=== PATIENT | female | born 1985 | race African-American/Black ===

== ENCOUNTER 2016-06-28 15:20 | Emergency (ER) | payer SELFPAY ==
[~2016-06-28] VITALS: Ht 170.2 cm; Wt 68.0 kg
[2016-06-28] MEDS ORDERED: LORAZEPAM INJ 2 MG/ML VIAL IV ONE ×2 (16:00→18:30)
[2016-06-28] MEDS ORDERED: IV NS 0.9% 1,000 ML BAG IV ONE (16:00)
[2016-06-28] MEDS ORDERED: IV NS 0.9% 1,000 ML ONE (16:08)
[2016-06-28] MEDS ORDERED: LORAZEPAM INJ 2 MG/ML VIAL ONE ×2 (16:08→18:06)
[2016-06-28] MEDS ORDERED: IV SET PRIMARY 1 EA INFUS.SET MC ONE (16:08)
[2016-06-28 16:18] LABS: BASOPHILS % (AUTO) 0.3 % (0.0-2.0); HEMATOCRIT 49 % (33-45); HEMOGLOBIN 16.6 g/dL (11.5-14.8); LYMPHOCYTES # (AUTO) 0.3 /CMM (0.8-4.8); LYMPHOCYTES % (AUTO) 2.7 % (20.0-44.0); MEAN CORPUSCULAR HEMOGLOBIN 37 PG (26.0-33.0); MEAN CORPUSCULAR HGB CONC 34 g/dl (31.0-36.0); MEAN CORPUSCULAR VOLUME 108 fL (82-100); MONOCYTES # (AUTO) 0.4 /CMM (0.1-1.30); MONOCYTES % (AUTO) 2.9 % (2.0-12.0); NEUTROPHILS # (AUTO) 11.6 /CMM (1.8-8.9); NEUTROPHILS % (AUTO) 94.1 % (43.0-81.0); PLATELET COUNT (AUTO) 218 /CMM (150-450); RED BLOOD CELL COUNT(AUTO) 4.53 MIL/uL (4.0-5.2); WHITE BLOOD COUNT (AUTO) 12.3 K/uL (4.3-11.0)
[2016-06-28 16:27] LABS: ANION GAP 25 (5-14); CALCIUM, SERUM 10.7 mg/dL (8.5-10.1); CARBON DIOXIDE 24 mmol/L (21-32); CHLORIDE 97 mmol/L (98-107); CREATININE 1.5 mg/dL (0.6-1.3); GFR 41 mL/min (>60); GLUCOSE 186 mg/dL (74-106); POTASSIUM 3.8 mmol/L (3.5-5.1); SODIUM SERUM 142 mmol/L (136-145); UREA NITROGEN, BLOOD 9 mg/dL (7-18)
[2016-06-28 16:33] LABS: ALANINE AMINOTRANSFERASE 82 U/L (12-78); ASPARTATE AMINOTRANSFERASE 74 U/L (15-37); BILIRUBIN,DIRECT 0.4 mg/dL (0.0-0.2); BILIRUBIN,TOTAL 1.3 mg/dL (0.2-1.0); INDIRECT BILIRUBIN 0.9 mg/dL (0.0-1.1); TOTAL PROTEIN, SERUM 9.6 g/dL (6.4-8.2)
[2016-06-28 16:45] LABS: ACETAMINOPHEN 0 ug/ml (10-30); SALICYLATE 0.7 mg/dL (2.8-20.0)
[2016-06-28 16:49] LABS: PREGNANCY TEST URINE QUAL NEGATIVE (NEGATIVE)
[2016-06-28 17:00] LABS: PH,URINE 6.5 (5.0-8.0)
[2016-06-28] MEDS ORDERED: CHLORDIAZEPOXIDE HCL 25 MG CAPSULE PO ONE (17:00)
[2016-06-28 17:02] LABS: ADD UA MICROSCOPIC YES; LEUKOCYTE ESTERASE ,URINE NEGATIVE (NEGATIVE)
[2016-06-28 17:06] LABS: KETONES,URINE 3+ (NEGATIVE)
[2016-06-28] MEDS ORDERED: CHLORDIAZEPOXIDE HCL 25 MG CAPSULE ONE (17:13)
[2016-06-28] MEDS ORDERED: ONDANSETRON HCL/PF 4 MG/2 ML VIAL ONE ×2 (17:16→18:05)
[2016-06-28 17:28] LABS: DIFF TOTAL % 100 %
[2016-06-28] MEDS ORDERED: ONDANSETRON HCL/PF - ER 4 MG/2 ML VIAL IV ONE ×2 (17:30→18:30)
[2016-06-28 17:58] LABS: ADD URINE CULTURE YES; WBC,URINE 0-2 /HPF (0-3)
[2016-06-28 19:03] VITALS: BP 140/75
[2016-06-28 19:39] LABS: BAND % (MANUAL) 1 % (0.0-5.0); LYMPHOCYTES % (MANUAL) 5 % (16-48)
[2016-06-28 19:40] LABS: PLATELET ESTIMATE ADEQUATE
[2016-06-28 19:41] LABS: ANISOCYTOSIS 2+
== END 2016-06-28 19:04 | disposition home or self-care (01) ==
LOC: ER 15:26
DX: N39.0 Urinary tract infection, site not specified (principal); F10.239 Alcohol dependence with withdrawal, unspecified; N28.9 Disorder of kidney and ureter, unspecified; R74.0 Nonspecific elevation of levels of transaminase and lactic acid dehydrogenase [LDH]
CPT/HCPCS: 36415; 80048-TC; 80076-TC; 81000-TC; 83690-TC; 84703-TC; 85025-TC; 87086-TC; A4606; G6038-TC; G6039-TC; G6040-TC; J2060; J2405; J7030; Z7610

== ENCOUNTER 2020-04-23 19:20 | Inpatient (IN) | payer MEDICAID, OTHER ==
[~2020-04-23] VITALS: Ht 170.2 cm; Wt 68.0 kg
--- NOTE | 2020-04-23 19:42 | NUR ---
LOLI AT BEDSIDE SPEAKING TO PT.
--- NOTE | 2020-04-23 19:57 | NUR ---
CAVITY PUMP OPERATOR AT BEDSIDE FOR BLOOD DRAW.
[2020-04-23 20:00] LABS: BASOPHILS # (AUTO) 0.1 /CMM (0.0-0.2); BASOPHILS % (AUTO) 0.7 % (0.0-2.0); EOSINOPHILS % (AUTO) 0.3 % (0.0-6.0); HEMATOCRIT 46 % (33-45); HEMOGLOBIN 15.6 g/dL (11.5-14.8); LYMPHOCYTES # (AUTO) 2.7 /CMM (0.8-4.8); LYMPHOCYTES % (AUTO) 26.3 % (20.0-44.0); MEAN CORPUSCULAR HGB CONC 34 g/dl (31.0-36.0); MEAN CORPUSCULAR VOLUME 109 fL (82-100); MONOCYTES # (AUTO) 0.4 /CMM (0.1-1.30); MONOCYTES % (AUTO) 4.1 % (2.0-12.0); NEUTROPHILS # (AUTO) 7.1 /CMM (1.8-8.9); NEUTROPHILS % (AUTO) 68.6 % (43.0-81.0); PLATELET COUNT (AUTO) 230 /CMM (150-450); RED BLOOD CELL COUNT(AUTO) 4.26 MIL/uL (4.0-5.2); WHITE BLOOD COUNT (AUTO) 10.3 K/uL (4.3-11.0)
[2020-04-23] MEDS ORDERED: IV NS 0.9% 1,000 ML BAG IV ONE ×2 (20:00→22:00)
[2020-04-23 20:08] LABS: CALCIUM, SERUM 9.4 mg/dL (8.5-10.1); POTASSIUM 2.9 mmol/L (3.5-5.1)
[2020-04-23 20:11] LABS: LYMPHOCYTES % (MANUAL) 24 % (16-48); MONOCYTES % (MANUAL) 4 % (0-11.0); NEUTROPHILS % (MANUAL) 72 (42-76)
[2020-04-23 20:13] LABS: ALBUMIN 4.7 g/dL (3.4-5.0); BILIRUBIN,DIRECT 0.2 mg/dL (0.0-0.2); BILIRUBIN,TOTAL 0.4 mg/dL (0.2-1.0); TOTAL PROTEIN, SERUM 8.7 g/dL (6.4-8.2)
--- NOTE | 2020-04-23 20:20 | NUR ---
SPOKE WITH TYLER FROM POISON CONTROL. RECOMMENDATIONS: MONITOR FOR A MINIMUM OF 12 HOURS IF NARCAN IS NEEDED, MONITOR FOR AN ADDITIONAL 6 HOURS MONITOR VITAL SIGNS AND AIRWAY MANAGEMENT REPEAT TYLENOL LEVEL AFTER 4 HOURS FROM TIME OF INGESTION. IF >150, START MUCOMYST JOSE SNOWDEN MADE AWARE
[2020-04-23] MEDS ORDERED: ONDANSETRON HCL/PF 4 MG/2 ML VIAL ONE (20:28)
[2020-04-23] MEDS ORDERED: ONDANSETRON HCL/PF 4 MG/2 ML VIAL IV ONE (20:30)
--- NOTE | 2020-04-23 20:35 | NUR ---
ASSUMED CARE FOR THIS PT
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
[2020-04-23] MEDS ORDERED: POTASSIUM CHLORIDE 20 MEQ TAB.PRT.SR PO ONE (21:00)
[2020-04-23 22:06] LABS: BILIRUBIN,URINE Negative (NEGATIVE); BLOOD, URINE Trace-lysed Ery/uL (NEGATIVE); COLOR,URINE YELLOW (YELLOW); LEUKOCYTE ESTERASE ,URINE Negative (NEGATIVE); NITRITE, URINE Negative (NEGATIVE); PH,URINE 5.5 (5.0-8.0); PROTEIN,URINE 100 mg/dl (NEGATIVE); UGLUCOSE Negative (NEGATIVE); UROBILINOGEN,URINE 0.2 EU/dL (0.2)
--- NOTE | 2020-04-23 22:09 | NUR ---
URINE COLLECTED AND SENT TO LAB
[2020-04-23 22:21] LABS: BACTERIA,URINE Rare /HPF (None Seen); SQUAMOUS EPITHELIAL CELL,UR Few /HPF (None Seen); WBC,URINE NONE SEEN /HPF (0-3)
[2020-04-23] MEDS ORDERED: MAG HYDROX/AL HYDROX/SIMETH 30 ML UDC PO PRN (22:30)
[2020-04-23] MEDS ORDERED: ZOLPIDEM TARTRATE 5 MG TABLET PO PRN (22:30)
[2020-04-23] MEDS ORDERED: IV D5/0.45 NACL 1,000 ML IV PRN (22:30)
[2020-04-23] MEDS ORDERED: MAGNESIUM HYDROXIDE 30 ML UDC PO PRN (22:30)
[2020-04-23] MEDS ORDERED: Z GUARD REMEDY 2 OZ OINT TP PRN (22:30)
--- NOTE | 2020-04-23 22:30 | NUR ---
JOSE SNOWDEN SPEAKING WITH DR. BURKS REGARDING ADMISSION
--- NOTE | 2020-04-23 22:36 | NUR ---
CALLED NURSING SUP FOR BED
--- NOTE | 2020-04-23 23:51 | NUR ---
GAVE UPDATE CLINICAL INFORMATION TO TYLER FROM POISON CONTROL. RECOMMENDED TO REPEAT TYLENOL LEVEL AND LFT IN 4 HOURS. JOSE SNOWDEN MADE AWARE
--- NOTE | 2020-04-23 23:51 | NUR ---
Paola madden in EDM - 04/24/20 at 0557 by CESAR GAVE UPDATE CLINICAL INFORMATION TO TYLER FROM POISON CONTROL. RECOMMENDED TO REPEAT TYLENOL LEVEL AND LFT IN 4 HOURS
[2020-04-24] MEDS ORDERED: METOCLOPRAMIDE HCL 10 MG/2 ML VIAL IV ONE (01:30)
--- NOTE | 2020-04-24 01:30 | NUR ---
PT HAD ONE EPISODE EMESIS. DR. BURKS MADE AWARE. REC'D VERBAL ORDER TO ADMINISTER REGLAN 10MG IV X1 NOW
[2020-04-24] MEDS ORDERED: METOCLOPRAMIDE HCL 10 MG/2 ML VIAL ONE (01:32)
--- NOTE | 2020-04-24 01:57 | NUR ---
PT'S GRANDPA (ALONZO
--- NOTE | 2020-04-24 02:04 | NUR ---
PT AWAKE IN BED. VSS. NO EPISODES OF VOMITING AT THIS TIME.
--- NOTE | 2020-04-24 05:15 | NUR ---
PT RESTING COMFORTABLY IN BED. VSS.NO ACUTE DISTRESS NOTED.
[2020-04-24 05:17] LABS: BASOPHILS # (AUTO) 0.1 /CMM (0.0-0.2); HEMATOCRIT 42 % (33-45); HEMOGLOBIN 13.9 g/dL (11.5-14.8); LYMPHOCYTES # (AUTO) 0.3 /CMM (0.8-4.8); LYMPHOCYTES % (AUTO) 2.9 % (20.0-44.0); MEAN CORPUSCULAR HGB CONC 33 g/dl (31.0-36.0); MEAN CORPUSCULAR VOLUME 111 fL (82-100); MONOCYTES # (AUTO) 0.4 /CMM (0.1-1.30); MONOCYTES % (AUTO) 3.9 % (2.0-12.0); NEUTROPHILS # (AUTO) 9.9 /CMM (1.8-8.9); NEUTROPHILS % (AUTO) 92.2 % (43.0-81.0); PLATELET COUNT (AUTO) 175 /CMM (150-450); RED BLOOD CELL COUNT(AUTO) 3.75 MIL/uL (4.0-5.2); WHITE BLOOD COUNT (AUTO) 10.7 K/uL (4.3-11.0)
[2020-04-24 05:43] LABS: CALCIUM, SERUM 8.9 mg/dL (8.5-10.1); CREATININE 0.9 mg/dL (0.6-1.3); MAGNESIUM 1.4 mg/dL (1.8-2.4); PHOSPHORUS 3.4 mg/dL (2.5-4.9); POTASSIUM 4.5 mmol/L (3.5-5.1); THYROID STIMULATING HORMONE 2.868 uIU/mL (0.358-3.74)
--- NOTE | 2020-04-24 05:44 | NUR ---
PT HAD AN EPISODE OF COFFEE GROUND EMESIS. DR BURKS MADE AWARE
[2020-04-24 05:45] LABS: ALBUMIN 4.2 g/dL (3.4-5.0); BILIRUBIN,DIRECT 0.2 mg/dL (0.0-0.2); BILIRUBIN,TOTAL 0.4 mg/dL (0.2-1.0)
--- NOTE | 2020-04-24 05:54 | NUR ---
SPOKE WITH POISON CONTROL, RECOMMENDED TO START MUCOMYST SINCE TYLENOL LEVEL IS >44. DR. BURKS MADE AWARE
--- NOTE | 2020-04-24 06:11 | NUR ---
REC'D ORDERS FROM DR. BURKS. MUCOMYST 150MG/KG IV X1 THEN REPEAT ACETAMINOPHEN LEVELS. PT IS 71.5 KG ON BED SCALE
--- NOTE | 2020-04-24 06:11 | NUR ---
Paola madden in EDM - 04/24/20 at 0635 by CESAR REC'Joseph ORDERS FROM DR. BURKS. MUCOMYST 150MG/KG IV X1 THEN REPEAT ACETAMINOPHEN LEVELS. PT IS 71.5 KG
--- NOTE | 2020-04-24 06:19 | NUR ---
PATIENT AMBULATED TO THE RESTROOM WITH FEMALE PLC CONTROLS ENGINEER.
[2020-04-24] MEDS ORDERED: ACETYLCYSTEINE IV 6,000 MG/30 ML VIAL IV ONE (06:31)
--- NOTE | 2020-04-24 06:35 | NUR ---
CALLED PHARMACY FOR MUCOMYST MEDICATION.
[2020-04-24] MEDS ORDERED: ACETYLCYSTEINE IV SCH ×2 (07:00→19:00)
[2020-04-24] MEDS ORDERED: D5W IV SCH ×2 (07:00→19:00)
[2020-04-24] MEDS: ACETYLCYSTEINE IV 6,000 MG/30 ML VIAL IV ONE ×2 (07:00→07:15)
--- NOTE | 2020-04-24 07:15 | NUR ---
BED ASSIGNMENT 310-1
--- NOTE | 2020-04-24 07:51 | NUR ---
REPORT GIVEN TO KRYSTYNA ALVARADO FOR RICH.
[2020-04-24] MEDS ORDERED: D5W IV ONE (07:58)
[2020-04-24] MEDS ORDERED: ACETYLCYSTEINE IV ONE (07:58)
--- NOTE | 2020-04-24 08:10 | NUR ---
PATIENT TRANSFERRED TO BED 310-1 VIA ACLS PROTOCOL. PATIENT COMPELTED MUCOMYST IV BAG, ENDORSED TO KRYSTYNA A REPEAT DRAW OF ACETAMINOPHEN AT 8:15AM.
--- NOTE | 2020-04-24 08:10 | NUR ---
SUPERINTENDENT PRODUCTION NOTES RECEIVED PT FROM E.R. STAFF VIA [facility], PT ABLE TO AMBULATE TO BED WITH ASSISTANCE, NO COMPLAINT OF PAIN, RESPIRATIONS NORMAL, WITH EPISODES OF NAUSEA/VOMITING, ROOM SET UP ORIENTATION PROVIDED TO PT, VERBALIZED UNDERSTANDING, SITTER AT BEDSIDE, NEEDS ATTENDED.
[2020-04-24] MEDS: PANTOPRAZOLE 40 MG TABLET.DR PO SCH (09:46)
--- NOTE | 2020-04-24 10:25 | NUR ---
CORE SETTER NOTES PT SEEN AND EXAMINED BY DR. GONZALEZ, PLAN OF CARE DISCUSSED WITH PT, VERBALIZED UNDERSTANDING, SITTER AT BEDSIDE, SAFETY PRECAUTIONS OBSERVED.
[2020-04-24] MEDS: ONDANSETRON HCL/PF 4 MG/2 ML VIAL IV PRN ×2 (10:57→20:29)
[2020-04-24] MEDS: Magnesium 1GM/D5W 100ML PREMIX 100 ML IV SCH ×4 (11:06→16:18)
[2020-04-24 12:00] VITALS: BP 130/88
[2020-04-24 15:49] LABS: ALBUMIN 3.5 g/dL (3.4-5.0); BILIRUBIN,DIRECT 0.8 mg/dL (0.0-0.2); BILIRUBIN,TOTAL 1.6 mg/dL (0.2-1.0); TOTAL PROTEIN, SERUM 6.9 g/dL (6.4-8.2)
[2020-04-24 16:00] VITALS: BP 138/91
--- NOTE | 2020-04-24 16:26 | NUR ---
SS consult request as pt. drug overdose. The pt. is a 34-year old female on the Med/Surge 3 Telemetry floor with history of alcohol abuse was brought in by EMS and presents with [employer] for suspected overdose on OxyContin per MD note. Upon SS consult, the pt. was lying in bed with eyes closed but rousable by verbal cues. The pt. appears tired with red eyes and stated can you come back later everyone keeps coming in and I want to rest. SW spoke to the pt.s nurse who stated that the pt. will not be D/C today. Plan: This SW or other SW to complete assessment on 04/25/2020. SW will be available as needed.
--- NOTE | 2020-04-24 18:01 | NUR ---
RN MS NOTES RECEIVED RECOMMENDATIONS FROM POISON CONTROL TO RESTART PT ON ACETYLCYSTEINE PER PROTOCOL, DR. GONZALEZ INFORMED AND AGREED.
[2020-04-24] MEDS ORDERED: ACETYLCYSTEINE IV 0 MG in IV D5W 500 ML IV SCH (18:30)
[2020-04-24] MEDS ORDERED: ACETYLCYSTEINE IV 0 MG in IV D5W 1,000 ML IV SCH (18:30)
[2020-04-24] MEDS ORDERED: ACETYLCYSTEINE IV 0 MG in IV D5W 200 ML IV SCH (18:30)
--- NOTE | 2020-04-24 19:00 | NUR ---
rn ms opening notes received patient awake in bed verbally responsive, awake alert and oriented x4 respirations even and unlabored with equal rise and fall of chest, denies any pain or discomfort at this time, iv site to left ac #18g intact and patent, no redness, no infiltration present, safety precautions maintained, low bed and locked, oriented to staff and call light and kept within reach, assisted to restroom and back to bed bed alarm in place, all needs attended at this time, will continue to monitor and attend to needs.
--- NOTE | 2020-04-24 19:00 | NUR ---
RN MS NOTES PT IN BED, ASLEEP, EASY TO AROUSE, ALERT AND ORIENTED, STATED THAT SHE IS FEELING BETTER, ABLE TO AMBULATE TO THE BATHROOM WITH ASSISTANCE, IV FLUIDS INFUSING WELL, NO FURTHER EPISODE OF NAUSEA OR VOMITING, CALL LIGHT WITHIN REACH, NOTED TO HAVE SKIN RASHES, PT STATED THAT SHE HAS ECZEMA, PT REFUSED PHOTOS TAKEN, ACETYLCYSTEINE IV ORDERED PER POISON CONTROL RECOMMENDATION, DR. GONZALEZ INFORMED AND AGREED, NEEDS ATTENDED.
--- NOTE | 2020-04-24 19:45 | NUR ---
rn ms notes patient states "my allergies are acting up, can i have something for allergies i take benadryl at home." dr. cherry made aware of current dx and status of patient, new order for benadryl 25mg q6hrs prn po, order read back and carried out.
[2020-04-24 20:00] VITALS: BP 135/92
[2020-04-24] MEDS ORDERED: ACETYLCYSTEINE IV 3,400 MG in IV D5W 500 ML IV SCH (20:00)
--- NOTE | 2020-04-24 20:29 | NUR ---
rn ms notes prn zofran given for nausea will continue to monitor.
[2020-04-24] MEDS: diphenhydrAMINE HCL ELIX 25 MG/10 ML UDC PO PRN (20:40)
--- NOTE | 2020-04-24 20:40 | NUR ---
rn ms notes prn benadryl given as ordered.
--- NOTE | 2020-04-24 22:52 | NUR ---
rn ms notes received call from [facility] poison control states lft and pt/inr lab is to be drawn one hour prior to 3rd bag finishing. if lft is trending up and inr is above two repeat 3rd bag of ivf acetadote iv/ mucomyst iv.
[2020-04-25] MEDS ORDERED: ACETYLCYSTEINE IV 6,800 MG in IV D5W 1,000 ML IV SCH ×2
[2020-04-25 00:41] VITALS: BP 135/92
--- NOTE | 2020-04-25 06:31 | NUR ---
rn ms closing notes patient in bed sleeping easily arousable, verbally responsive, alert and oriented x4 respirations even and unlabored with equal rise and fall of chest, denies any pain or discomfort at this time, zofran was effective , iv site to left wrist #22g intact and patent, no redness, no infiltration present, safety precautions maintained, low bed and locked, call light kept within reach, assisted to restroom and back to bed alarm in place, fluids offered , all needs attended at this time, will continue to monitor and attend to needs and endorse to next shift per [facility] no data on running d5 1/2 ns and acetyclystein/mucomyst together, advises not to be ran together. acetadote iv/ mucomyst iv is currently running on its own as ordered.
--- NOTE | 2020-04-25 07:30 | NUR ---
MS/RN OPENING NOTE Patient resting in bed, A&O x 3. Breathing even and non-labored on RA, no SOB noted. No cardiac distress noted. IV access noted on L wrist #22, patent and intact, and flushing well. Infusing mucomyst 6800 mg @64.59 ml/hr. Sensation from all peripheral extremities intact. Bed locked to its lowest position, side rails x 2 up, call light in hand. Will continue with current medical management.
[2020-04-25 07:54] LABS: CALCIUM, SERUM 8.6 mg/dL (8.5-10.1); CREATININE 0.7 mg/dL (0.6-1.3); MAGNESIUM 2.2 mg/dL (1.8-2.4); POTASSIUM 3.3 mmol/L (3.5-5.1)
[2020-04-25 08:00] VITALS: BP 131/90
--- NOTE | 2020-04-25 08:00 | NUR ---
MS/RN NOTE Patient complaining of migraine on the occipital area, describes quality as sharp, rating it a 5/[address] Quan at bedside, ordered ibuprofen 400 mg PO q6h. Order carried out. Will continue to monitor.
[2020-04-25] MEDS: PANTOPRAZOLE 40 MG TABLET.DR PO SCH (08:05)
[2020-04-25] MEDS: ONDANSETRON HCL/PF 4 MG/2 ML VIAL IV PRN (08:13)
--- NOTE | 2020-04-25 08:13 | NUR ---
MS/RN NOTE Patient reports of having vomited once, clear emesis noted, currently complains of nausea. Administered zofran 4 mg IV. Will continue to monitor closely.
[2020-04-25] MEDS: IBUPROFEN 400 MG TABLET PO PRN ×2 (09:26→15:29)
[2020-04-25] MEDS ORDERED: POTASSIUM CHLORIDE 20 MEQ TAB.PRT.SR PO ONE (09:30)
--- NOTE | 2020-04-25 15:00 | NUR ---
CORRECTION FROM LAST NOTE: If patient's INR (not PT) is above 2, and LFT's are trending up, infuse another bag of Acetadote IV/ Mucomyst IV 6800 mg for 16 hrs.
--- NOTE | 2020-04-25 15:00 | NUR ---
MS/RN NOTE Spoke with Vi from Poison control, states "an hour before you finish your third bag of Acetadote IV/ Mucomyst IV 6800 mg, check PT/INR and LFTs. If patient's PT is above 2, and LFT's are trending up, infuse another bag of Acetadote IV/ Mucomyst IV 6800 mg for 16 hrs." Order carried out, called lab for blood draw since patient's third infusion will finish at 1630. Addendum: 04/25/20 at 1640 by MARINA SILVERIO RN In addition to above, once another bag of Acetadote IV/ Mucomyst IV 6800 mg is infused, make sure to have patient's blood drawn for PT/INR and LFTs an hour before the bag finishes.
[2020-04-25] MEDS: diphenhydrAMINE HCL ELIX 25 MG/10 ML UDC PO PRN (15:18)
--- NOTE | 2020-04-25 15:18 | NUR ---
MS/RN NOTE Benadryl PRN as MD ordered, patient having runny and itchy nose.
[2020-04-25 15:20] LABS: ALBUMIN 3.4 g/dL (3.4-5.0); BILIRUBIN,DIRECT 1.1 mg/dL (0.0-0.2); BILIRUBIN,TOTAL 1.8 mg/dL (0.2-1.0); TOTAL PROTEIN, SERUM 6.8 g/dL (6.4-8.2)
--- NOTE | 2020-04-25 15:30 | NUR ---
MS/RN NOTE Lab collected patient's blood for PT/INR and LFTs. Awaiting for results.
[2020-04-25] MEDS ORDERED: ACETYLCYSTEINE IV 6,800 MG in IV D5W 1,000 ML IV ONE ×3 (15:59→20:00)
[2020-04-25 16:00] VITALS: BP 119/78
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
--- NOTE | 2020-04-25 16:30 | NUR ---
MS/RN NOTE Followed up lab for patient's results for PT/INR and LFTs
[2020-04-25 17:03] LABS: ALBUMIN 3.3 g/dL (3.4-5.0); BILIRUBIN,DIRECT 1.1 mg/dL (0.0-0.2); BILIRUBIN,TOTAL 1.6 mg/dL (0.2-1.0); TOTAL PROTEIN, SERUM 6.7 g/dL (6.4-8.2)
--- NOTE | 2020-04-25 17:30 | NUR ---
MS/RN NOTE Followed up lab for patient's results for liver panel, per lab, they are in the process of gathering results. Awaiting for results.
--- NOTE | 2020-04-25 18:28 | NUR ---
MS/RN OPENING NOTE Patient resting in bed, A&O x 3. All needs met and attended to. No complaints of pain/discomfort at this time. Breathing even and non-labored on RA, no SOB noted. No cardiac distress noted. IV access noted on L wrist #22, patent and intact, and running D5 1/2 NS @ 75 ml/hr. Sensation from all peripheral extremities intact. Fall precautions maintained. Will endorse to night manager nurse. Addendum: 04/25/20 at 1830 by MARINA SILVERIO RN DISREGARD NOTE
--- NOTE | 2020-04-25 18:29 | NUR ---
MS/RN CLOSING NOTE Patient resting in bed, A&O x 3. All needs met and attended to. No complaints of pain/discomfort at this time. Breathing even and non-labored on RA, no SOB noted. No cardiac distress noted. IV access noted on L wrist #22, patent and intact, and running D5 1/2 NS @ 75 ml/hr. Sensation from all peripheral extremities intact. Fall precautions maintained. Will endorse to plant operator/shift supervisor nurse.
--- NOTE | 2020-04-25 18:31 | NUR ---
MS/RN JL DUARTE as MD ordered, patient having runny and itchy nose. Addendum: 04/25/20 at 1832 by MARINA SILVERIO RN WRONG TIME,DISREGARD NOTE
--- NOTE | 2020-04-25 19:45 | NUR ---
ms dimension quarry supervisor initial notes received report from am nurse and seen pt in bed resting with eyes closed but arouse easily , denies any pain or any discomfort. not in any acute distress noted. She still have IVF D51/2 Ns at 75ml/hr infusing on her left wrist. patent no redness noted. kept her warm and comfortable at all times. Encourage her to used the call light system if she needs some helped or assistance. bed in low and lock in position with side rails x 2 . [address] monitoring[address] place call light at reach.
[2020-04-25 20:00] VITALS: BP 94/65
--- NOTE | 2020-04-25 20:32 | NUR ---
MS RN NOTES GIVEN 1999 ACETADOTE MUCOMYST IV. CHECK PT IDENTIFIES AND MEDICATION. WILL CONTINUE TO MONITOR.
[2020-04-26] MEDS: diphenhydrAMINE HCL ELIX 25 MG/10 ML UDC PO PRN ×2 (02:42→12:52)
--- NOTE | 2020-04-26 02:45 | NUR ---
ms dominik notes pt woke up and used the restroom then complaining of migraine pain , motrin po given as ordered. will continue monitoring.
[2020-04-26] MEDS: IBUPROFEN 400 MG TABLET PO PRN ×2 (02:48→15:52)
[2020-04-26 07:02] LABS: BILIRUBIN,DIRECT 1.1 mg/dL (0.0-0.2); BILIRUBIN,TOTAL 1.4 mg/dL (0.2-1.0); CALCIUM, SERUM 8.7 mg/dL (8.5-10.1); CREATININE 0.8 mg/dL (0.6-1.3); MAGNESIUM 1.9 mg/dL (1.8-2.4); PHOSPHORUS 2.2 mg/dL (2.5-4.9); POTASSIUM 3.5 mmol/L (3.5-5.1)
--- NOTE | 2020-04-26 07:05 | NUR ---
ms apprentice embalmer closing notes pt remains resting after benadryl po given . arousable to her name . not in any distress noted . all due meds given and all needs met. Stable throughout the night and slept well. IVF still infusing. Endorse to nurse Ebonie /RN for continuity of care. place call light at reach.
--- NOTE | 2020-04-26 07:15 | NUR ---
MS/RN NOTE Patient signed and left AMA. Refused to sign belongings list, states "I have everything." Addendum: 04/26/20 at 2057 by MARINA SILVERIO RN CORRECTION: WRONG TIME INPUTTED, PATIENT LEFT AMA AT 1914
--- NOTE | 2020-04-26 07:30 | NUR ---
MS/RN OPENING NOTE Patient in bed, A&O x 3. No complaints of pain/discomfort at this time. Breathing even and non-labored on RA, no SOB noted. No cardiac distress noted. IV access noted on L wrist #22, patent and intact, and flushing well. Infusing mucomyst 6800 mg @64.59 ml/hr. Sensation from all peripheral extremities intact. Bed locked to its lowest position, side rails x 2 up, call light in hand. Will continue with current medical management.
[2020-04-26 08:00] VITALS: BP 114/85
[2020-04-26] MEDS: PANTOPRAZOLE 40 MG TABLET.DR PO SCH (08:11)
[2020-04-26 08:41] LABS: BASOPHILS % (AUTO) 1.2 % (0.0-2.0); EOSINOPHILS % (AUTO) 2.4 % (0.0-6.0); HEMATOCRIT 40 % (33-45); HEMOGLOBIN 13.4 g/dL (11.5-14.8); LYMPHOCYTES # (AUTO) 0.7 /CMM (0.8-4.8); MEAN CORPUSCULAR HGB CONC 33 g/dl (31.0-36.0); MEAN CORPUSCULAR VOLUME 109 fL (82-100); MONOCYTES # (AUTO) 0.1 /CMM (0.1-1.30); MONOCYTES % (AUTO) 4.5 % (2.0-12.0); NEUTROPHILS # (AUTO) 0.7 /CMM (1.8-8.9); NEUTROPHILS % (AUTO) 47.9 % (43.0-81.0); PLATELET COUNT (AUTO) 55 /CMM (150-450); RED BLOOD CELL COUNT(AUTO) 3.69 MIL/uL (4.0-5.2)
--- NOTE | 2020-04-26 09:05 | NUR ---
MS/RN NOTE Lab called for critical result of WBC 1.[address] Quan, ordered redraw of CBC. Will continue to monitor.
[2020-04-26 09:08] LABS: WHITE BLOOD COUNT (AUTO) 1.5 K/uL (4.3-11.0)
--- NOTE | 2020-04-26 10:00 | NUR ---
MS/RN NOTE Patient appears comfortable and well. No s/s of pain/discomfort at this time. Denies N/V.
--- NOTE | 2020-04-26 11:00 | NUR ---
MS/RN NOTE Called lab to get patient's lab draw for PT, INR, LFT, and retake CBC per Dr. Quan. Lab states they will collect blood soon.
[2020-04-26 11:09] LABS: EOSINOPHILS % (MANUAL) 1 % (0-4); LYMPHOCYTES % (MANUAL) 42 % (16-48); MONOCYTES % (MANUAL) 3 % (0-11.0); NEUTROPHILS % (MANUAL) 54 (42-76)
--- NOTE | 2020-04-26 12:00 | NUR ---
MS/RN NOTE Followed up lab for PT and INR, and liver panel results to be reported to poison control. Lab states they are working on it.
--- NOTE | 2020-04-26 12:52 | NUR ---
MS/RN NOTE Patient complaining of runny nose, administered benadryl. Will continue to monitor.
[2020-04-26] MEDS ORDERED: ACETYLCYSTEINE IV 6,800 MG in IV D5W 1,000 ML IV ONE (13:00)
[2020-04-26 13:02] LABS: ALBUMIN 2.9 g/dL (3.4-5.0); BILIRUBIN,DIRECT 1.1 mg/dL (0.0-0.2); BILIRUBIN,TOTAL 1.4 mg/dL (0.2-1.0)
[2020-04-26 13:19] LABS: BASOPHILS % (AUTO) 1.1 % (0.0-2.0); EOSINOPHILS % (AUTO) 3.2 % (0.0-6.0); HEMATOCRIT 38 % (33-45); HEMOGLOBIN 12.6 g/dL (11.5-14.8); LYMPHOCYTES # (AUTO) 0.6 /CMM (0.8-4.8); MEAN CORPUSCULAR HGB CONC 34 g/dl (31.0-36.0); MEAN CORPUSCULAR VOLUME 108 fL (82-100); MONOCYTES # (AUTO) 0.1 /CMM (0.1-1.30); MONOCYTES % (AUTO) 5.9 % (2.0-12.0); NEUTROPHILS # (AUTO) 0.7 /CMM (1.8-8.9); NEUTROPHILS % (AUTO) 47.8 % (43.0-81.0); PLATELET COUNT (AUTO) 56 /CMM (150-450); RED BLOOD CELL COUNT(AUTO) 3.47 MIL/uL (4.0-5.2)
[2020-04-26] MEDS ORDERED: K PHOS NEUTRAL 250 MG TABLET PO ONE (13:30)
[2020-04-26 13:55] LABS: WHITE BLOOD COUNT (AUTO) 1.4 K/uL (4.3-11.0)
--- NOTE | 2020-04-26 15:03 | NUR ---
MS/RN NOTE Patient's IV on L wirist #22g, noted to be infiltrated and leaking. Removed iv access with catheter intact, no s/s of bleeding or infection noted on site. Placed clean dry dressing on top and elevated arm on heart level. Will continue to monitor.
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
--- NOTE | 2020-04-26 15:52 | NUR ---
MS/RN NOTE Patient complaining of right-sided migraine, rating a 7/10 dull ache pain. Administered Ibuprofen 400 mg. Will continue to monitor.
[2020-04-26 16:00] VITALS: BP 124/77
--- NOTE | 2020-04-26 16:15 | NUR ---
MS/RN NOTE Attempted IV insertion once from me and 2 times from another RN, IV insertion unsuccessful. Notified manager software development, states to call VIVEK nurse to help with IV insertion. Called VIVEK nurse, states she will come when she's finished with tasks. Will continue to monitor.
--- NOTE | 2020-04-26 17:10 | NUR ---
MS/RN NOTE Patient states "I do not see the point of staying anymore, sitting down here doing nothing is making me nuts. My liver enzymes have been elevated since I was 6, and I know I need to have the anti-tylenol fluids running for me but I just don't see the point in staying anymore. I don't want to get poked too for another IV insertion, I am in pain. I want something more than just ibuprofen, but I know I am not allowed to." Educated patient the importance of treatment compliance and the dangers of her condition, patient insists on leaving against AMA. Called Dr. Becker regarding patient's decisions. Dr. Becker spoke to patient for 20 mins about risks and benefits of leaving the hospital, and emphasized the importance of treatment compliance. Spoke with Dr. Becker regarding patient's situation, ordered midline insertion, called nursing sugar house supervisor right away for STAT midline access.
--- NOTE | 2020-04-26 17:30 | NUR ---
MS/RN NOTE Nursing cost control supervisor, Kierra, notified chargeback specialist that midline will be done in an hour by Fran, who is on the way. Addendum: 04/26/20 at 2049 by MARINA SILVERIO RN Notified patient that the midline nurse is on the way, patient verbalizes understanding.
--- NOTE | 2020-04-26 19:15 | NUR ---
MS/RN NOTE Patient insists on leaving against medical advice despite knowing that midline nurse is 15 minutes away from the hospital. Patient states "I do not want to get poked anymore, and I do not see the need to have those anti-tylenol fluids for another 16 hrs. I am already going crazy just sitting around the hospital. I do not think I can take it anymore. I just want to leave, even when anyone tells me about the risks of leaving, I do not care. I've had my liver enzymes elevated since I was 6. I do not see the difference feeling better with this medication." Tried calling Dr. Becker, but was transferred to Dr. Ballard, who is the neon pumper doctor, notified about the patient's condition and situation, and the patient's willingness to leave AMA.
[2020-04-27] MEDS ORDERED: ACETYLCYSTEINE IV ONE (07:00)
[2020-04-27] MEDS ORDERED: D5W IV ONE (07:00)
== END 2020-04-26 19:15 | disposition left against medical advice (07) | DRG 817 ==
LOC: ER 19:21 → TELE 04-24 07:27 → MED 04-24 12:22
PROVIDERS: ADMIT Student in an Organized Health Care Education/Training Program; ATTEND Internal Medicine
DX: T40.2X2A Poisoning by other opioids, intentional self-harm, initial encounter (principal); T39.1X2A Poisoning by 4-Aminophenol derivatives, intentional self-harm, initial encounter; G92 Toxic encephalopathy; E86.0 Dehydration; E87.6 Hypokalemia; D61.818 Other pancytopenia; D64.9 Anemia, unspecified; R94.31 Abnormal electrocardiogram [ECG] [EKG]; D68.9 Coagulation defect, unspecified; B17.9 Acute viral hepatitis, unspecified; Y92.89 Other specified places as the place of occurrence of the external cause; F32.9 Major depressive disorder, single episode, unspecified; F19.10 Other psychoactive substance abuse, uncomplicated; D72.819 Decreased white blood cell count, unspecified; R40.2142 Coma scale, eyes open, spontaneous, at arrival to emergency department; R40.2362 Coma scale, best motor response, obeys commands, at arrival to emergency department; R40.2252 Coma scale, best verbal response, oriented, at arrival to emergency department
CPT/HCPCS: 36415; 76700-TC; 80048-TC; 80061-TC; 80076-TC; 81001; 83735-TC; 84100-TC; 84443-TC; 84703-TC; 85025-TC; 85385-TC; 85610-TC; 87081-TC; C9803; G0378; G0480; J0132; J2405; J2765; J3475; J3490; J7030; J7060; J7070; Q0163

== ENCOUNTER 2020-10-01 17:45 | Emergency (ER) | payer MEDICAID, OTHER ==
[~2020-10-01] VITALS: Ht 170.2 cm; Wt 68.5 kg
--- NOTE | 2020-10-01 17:52 | NUR ---
BIB RA 89 FROM HOME,FLU-LIKE SX (SOB,NAUSEA,VOMITING) X 1WEEK,WORSE X 1 DAY. DENIES PAIN. IN ROOM AIR AND RESPIRATION REGULAR AND UNLABORED. ATTACHED TO THE MONITOR. WILL CONTINUE TO MONITOR THE PATIENT.
[2020-10-01] MEDS ORDERED: ONDANSETRON HCL/PF 4 MG/2 ML VIAL ONE (18:28)
[2020-10-01] MEDS ORDERED: ONDANSETRON HCL/PF 4 MG/2 ML VIAL IVP ONE (18:30)
[2020-10-01] MEDS ORDERED: IV NS 0.9% 1,000 ML BAG IV ONE (18:30)
[2020-10-01 18:42] LABS: BASOPHILS # (AUTO) 0.1 /CMM (0.0-0.2); BASOPHILS % (AUTO) 0.8 % (0.0-2.0); HEMATOCRIT 42 % (33-45); HEMOGLOBIN 14.3 g/dL (11.5-14.8); LYMPHOCYTES # (AUTO) 1.6 /CMM (0.8-4.8); LYMPHOCYTES % (AUTO) 23.6 % (20.0-44.0); MEAN CORPUSCULAR HGB CONC 34 g/dl (31.0-36.0); MEAN CORPUSCULAR VOLUME 112 fL (82-100); MONOCYTES # (AUTO) 0.4 /CMM (0.1-1.30); MONOCYTES % (AUTO) 5.8 % (2.0-12.0); NEUTROPHILS # (AUTO) 4.5 /CMM (1.8-8.9); NEUTROPHILS % (AUTO) 67.8 % (43.0-81.0); PLATELET COUNT (AUTO) 230 /CMM (150-450); RED BLOOD CELL COUNT(AUTO) 3.77 MIL/uL (4.0-5.2); WHITE BLOOD COUNT (AUTO) 6.6 K/uL (4.3-11.0)
[2020-10-01 19:03] LABS: CALCIUM, SERUM 9.8 mg/dL (8.5-10.1); CREATININE 0.9 mg/dL (0.6-1.3); POTASSIUM 3.5 mmol/L (3.5-5.1)
[2020-10-01 19:12] LABS: ALBUMIN 4.5 g/dL (3.4-5.0); BILIRUBIN,DIRECT 0.2 mg/dL (0.0-0.2); BILIRUBIN,TOTAL 0.8 mg/dL (0.2-1.0); EOSINOPHILS % (MANUAL) 2 % (0-4); LYMPHOCYTES % (MANUAL) 13 % (16-48); MONOCYTES % (MANUAL) 11 % (0-11.0); NEUTROPHILS % (MANUAL) 74 (42-76); TOTAL PROTEIN, SERUM 8.4 g/dL (6.4-8.2)
[2020-10-01] MEDS: diphenhydrAMINE HCL 50 MG/ML VIAL IV ONE ×2 (19:30→19:35)
[2020-10-01] MEDS ORDERED: METOCLOPRAMIDE HCL 10 MG/2 ML VIAL IV ONE (19:30)
[2020-10-01] MEDS ORDERED: METOCLOPRAMIDE HCL 10 MG/2 ML VIAL ONE (19:31)
[2020-10-01] MEDS ORDERED: diphenhydrAMINE HCL 50 MG/ML VIAL ONE (19:31)
[2020-10-01 19:35] LABS: BILIRUBIN,URINE SMALL (NEGATIVE); COLOR,URINE DARK YELLOW (YELLOW); LEUKOCYTE ESTERASE ,URINE NEGATIVE (NEGATIVE); NITRITE, URINE NEGATIVE (NEGATIVE); PROTEIN,URINE TRACE mg/dl (NEGATIVE); UGLUCOSE NEGATIVE (NEGATIVE); UROBILINOGEN,URINE 0.2 EU/dL (0.2)
--- NOTE | 2020-10-01 19:35 | NUR ---
BENADRYL 50 PO IV TAKEN OUT FROM [facility] BUT DISCARDED BECAUSE THE PATIENT REFUSED THE MEDICATION.
[2020-10-01] MEDS ORDERED: HALOPERIDOL LACTATE INJ 5 MG/ML VIAL ONE (19:59)
[2020-10-01] MEDS ORDERED: HALOPERIDOL LACTATE INJ 5 MG/ML VIAL IV ONE (20:00)
[2020-10-01 20:01] LABS: BACTERIA,URINE 1+ /HPF (None Seen); RBC,URINE 0-2 /HPF (0-2); SQUAMOUS EPITHELIAL CELL,UR 21-50 /HPF (None Seen); WBC,URINE 0-2 /HPF (0-3)
[2020-10-01] MEDS ORDERED: ONDA4TAB5 PO (20:23)
[2020-10-01] MEDS ORDERED: PANT20TA2 PO (20:24)
--- NOTE | 2020-10-01 20:46 | NUR ---
The patient alert and oriented x4. Denies n/v. Denies pain. Respiration regular and unlabored. Patient discharged to home in stable condition. Written and verbal after care instructions given. Patient verbalizes understanding of instruction.
[2020-10-01 20:47] VITALS: BP 138/87
== END 2020-10-01 20:47 | disposition home or self-care (01) ==
LOC: ER 17:57
DX: R11.10 Vomiting, unspecified (principal); F12.10 Cannabis abuse, uncomplicated; F41.9 Anxiety disorder, unspecified; F32.9 Major depressive disorder, single episode, unspecified; Z91.018 Allergy to other foods; Z60.2 Problems related to living alone; Z79.899 Other long term (current) drug therapy
CPT/HCPCS: 36415; 80048; 80076; 80307; 80320; 81001; 83690; 84702; 84703; 85007; 85025; 93005; 96361; 96374; 96375; 99284; J1200; J1630; J2405; J2765; J7030; G0480

== ENCOUNTER 2021-12-20 12:11 | Emergency (ER) | payer OTHER ==
[~2021-12-20] VITALS: Ht 170.2 cm; Wt 70.3 kg
[~2021-12-20 12:11] MED LIST: ONDA4TAB5 PO; PANT20TA2 PO
[2021-12-20 12:12] VITALS: BP 136/85
[2021-12-20] MEDS ORDERED: NAPR-1192 PO ×2 (14:09→14:21)
--- NOTE | 2021-12-20 14:22 | NUR ---
Patient discharged to home in stable condition. Written and verbal after care instructions given. Patient verbalizes understanding of instruction.
== END 2021-12-20 14:37 | disposition home or self-care (01) ==
LOC: ER 12:15
DX: S16.1XXA Strain of muscle, fascia and tendon at neck level, initial encounter (principal); M25.511 Pain in right shoulder; Z91.018 Allergy to other foods; Z60.2 Problems related to living alone; Z79.899 Other long term (current) drug therapy; V43.92XA Unspecified car occupant injured in collision with other type car in traffic accident, initial encounter; Y93.89 Activity, other specified; Y92.413 State road as the place of occurrence of the external cause; Y99.8 Other external cause status
CPT/HCPCS: 72125-TC; 73030-TC; 73080-TC; 84703-TC

== ENCOUNTER 2023-04-30 21:03 | Inpatient (IN) | payer OTHER ==
[~2023-04-30] VITALS: Ht 170.2 cm; Wt 74.4 kg
[~2023-04-30 21:03] MED LIST changes: +NAPR-1192 PO
[2023-04-30] MEDS ORDERED: KETOROLAC TROMETHAMINE INJ 30 MG/ML VIAL ONE (22:24)
[2023-04-30] MEDS ORDERED: KETOROLAC TROMETHAMINE INJ 30 MG/ML VIAL IV ONE (22:30)
[2023-04-30] MEDS ORDERED: IV NS 0.9% 500 ML BAG IV ONE (22:30)
[2023-04-30] MEDS ORDERED: MECLIZINE HCL 12.5 MG TABLET ONE (22:41)
[2023-04-30 22:58] LABS: BASOPHILS % (AUTO) 0.3 % (0.0-2.0); EOSINOPHILS # (AUTO) 0.1 K/uL (0.0-0.7); EOSINOPHILS % (AUTO) 0.5 % (0.0-6.0); HEMATOCRIT 41 % (33-45); LYMPHOCYTES # (AUTO) 0.9 K/uL (0.8-4.8); LYMPHOCYTES % (AUTO) 7.9 % (20.0-44.0); MEAN CORPUSCULAR HEMOGLOBIN 37 PG (26.0-33.0); MEAN CORPUSCULAR HGB CONC 34 g/dl (31.0-36.0); MEAN CORPUSCULAR VOLUME 111 fL (82-100); MONOCYTES # (AUTO) 0.4 K/uL (0.1-1.30); MONOCYTES % (AUTO) 4.1 % (2.0-12.0); NEUTROPHILS # (AUTO) 9.4 K/uL (1.8-8.9); NEUTROPHILS % (AUTO) 87.2 % (43.0-81.0); PLATELET COUNT (AUTO) 218 K/uL (150-450); RED BLOOD CELL COUNT(AUTO) 3.73 MIL/uL (4.0-5.2); RED CELL DISTRIBUTION WIDTH 14.2 % (11.5-15.0); WHITE BLOOD COUNT (AUTO) 10.8 K/uL (4.3-11.0)
[2023-04-30] MEDS ORDERED: MECLIZINE HCL 12.5 MG TABLET PO ONE (23:00)
[2023-04-30 23:06] LABS: CALCIUM, SERUM 9.5 mg/dL (8.5-10.1); CARBON DIOXIDE 26 mmol/L (21-32); CHLORIDE 102 mmol/L (98-107); CREATININE 0.9 mg/dL (0.6-1.3); GLUCOSE 115 mg/dL (74-106); SODIUM SERUM 136 mmol/L (136-145); UREA NITROGEN, BLOOD 9 mg/dL (7-18)
[2023-04-30 23:11] LABS: ALANINE AMINOTRANSFERASE 27 U/L (12-78); ALBUMIN 4.3 g/dL (3.4-5.0); ALKALINE PHOSPHATASE 124 U/L (46-116); ASPARTATE AMINOTRANSFERASE 26 U/L (15-37); BILIRUBIN,DIRECT 0.2 mg/dL (0.0-0.2); BILIRUBIN,TOTAL 0.5 mg/dL (0.2-1.0); TOTAL PROTEIN, SERUM 8.4 g/dL (6.4-8.2)
[2023-05-01] LABS: SALICYLATE 3.5 mg/dL (2.8-20.0)
[2023-05-01 00:01] LABS: ACETAMINOPHEN <10 ug/ml (10-30)
[2023-05-01 00:22] LABS: PREGNANCY TEST URINE QUAL NEGATIVE (NEGATIVE)
[2023-05-01 00:23] LABS: APPEARANCE,URINE CLOUDY (CLEAR); BILIRUBIN,URINE 1+ (NEGATIVE); BLOOD, URINE NEGATIVE Ery/uL (NEGATIVE); COLOR,URINE DARK YELLOW (YELLOW); KETONES,URINE TRACE mg/dL (NEGATIVE); LEUKOCYTE ESTERASE ,URINE TRACE (NEGATIVE); NITRITE, URINE NEGATIVE (NEGATIVE); PH,URINE 6.5 (5.0-8.0); PROTEIN,URINE 2+ mg/dl (NEGATIVE); UGLUCOSE NEGATIVE (NEGATIVE)
[2023-05-01 00:37] LABS: ADD URINE CULTURE NO; BACTERIA,URINE Rare /HPF (None Seen); RBC,URINE 0-2 /HPF (0-2); SQUAMOUS EPITHELIAL CELL,UR Many /HPF (None Seen); WBC,URINE 0-2 /HPF (0-3)
[2023-05-01 00:38] LABS: PREGNANCY TEST URINE QUAL NEGATIVE (NEGATIVE)
[2023-05-01] MEDS ORDERED: POTASSIUM CHLORIDE 20 MEQ TAB.PRT.SR PO ONE ×2 (00:39)
[2023-05-01 00:47] LABS: AMPHETAMINE, URINE NEGATIVE (NEGATIVE); BARBITURATE, URINE NEGATIVE (NEGATIVE); BENZODIAZEPINE, URINE NEGATIVE (NEGATIVE); COCCAINE, URINE NEGATIVE (NEGATIVE); OPIATE, URINE NEGATIVE (NEGATIVE); PHENCYCLIDINE SCREEN,URINE NEGATIVE (NEGATIVE)
[2023-05-01 00:48] LABS: CANNABINOID, URINE POSITIVE (NEGATIVE)
[2023-05-01] MEDS ORDERED: ONDANSETRON HCL/PF 4 MG/2 ML VIAL ONE (00:49)
[2023-05-01] MEDS ORDERED: ONDANSETRON HCL/PF 4 MG/2 ML VIAL IV ONE (01:00)
[2023-05-01] MEDS ORDERED: Z GUARD REMEDY 4 OZ OINT TP PRN (02:00)
[2023-05-01] MEDS ORDERED: MAG HYDROX/AL HYDROX/SIMETH 30 ML UDC PO PRN (02:00)
[2023-05-01] MEDS ORDERED: ACETAMINOPHEN 325 MG TABLET PO PRN (02:00)
[2023-05-01] MEDS ORDERED: MAGNESIUM HYDROXIDE 30 ML UDC PO PRN (02:00)
[2023-05-01] MEDS ORDERED: ONDANSETRON HCL/PF 4 MG/2 ML VIAL IVP PRN (02:00)
[2023-05-01] MEDS: IV NS 0.9% 1,000 ML IV PRN (04:06)
[2023-05-01] MEDS: HYDROCODONE/APAP 10/325MG TABLET PO PRN ×4 (04:16→21:00)
[2023-05-01 04:36] VITALS: BP 119/86; TEMP 98.3; O2SAT 96
[2023-05-01] MEDS: PANTOPRAZOLE 40 MG/PACK PACK PO SCH (07:00)
[2023-05-01 08:43] LABS: BASOPHILS % (AUTO) 0.3 % (0.0-2.0); EOSINOPHILS % (AUTO) 0.2 % (0.0-6.0); HEMATOCRIT 36 % (33-45); LYMPHOCYTES % (AUTO) 12.4 % (20.0-44.0); MEAN CORPUSCULAR HEMOGLOBIN 38 PG (26.0-33.0); MEAN CORPUSCULAR HGB CONC 34 g/dl (31.0-36.0); MEAN CORPUSCULAR VOLUME 111 fL (82-100); MONOCYTES # (AUTO) 0.4 K/uL (0.1-1.30); NEUTROPHILS # (AUTO) 6.8 K/uL (1.8-8.9); NEUTROPHILS % (AUTO) 82.1 % (43.0-81.0); PLATELET COUNT (AUTO) 184 K/uL (150-450); RED CELL DISTRIBUTION WIDTH 14.4 % (11.5-15.0); WHITE BLOOD COUNT (AUTO) 8.2 K/uL (4.3-11.0)
[2023-05-01 08:47] VITALS: BP 125/88; TEMP 97.9; O2SAT 98
[2023-05-01 08:52] LABS: CALCIUM, SERUM 8.7 mg/dL (8.5-10.1); CREATININE 0.8 mg/dL (0.6-1.3); POTASSIUM 3.5 mmol/L (3.5-5.1)
[2023-05-01 08:58] LABS: ALBUMIN 3.5 g/dL (3.4-5.0); BILIRUBIN,TOTAL 0.5 mg/dL (0.2-1.0); TOTAL PROTEIN, SERUM 6.9 g/dL (6.4-8.2)
[2023-05-01] MEDS ORDERED: diphenhydrAMINE HCL 50 MG/ML VIAL IV ONE (12:00)
[2023-05-01] MEDS ORDERED: hydrALAZINE HCL IV 20 MG VIAL IV PRN (12:00)
[2023-05-01 12:20] VITALS: BP_SYST 108; BP_SYST 125; BP_SYST 126; BP_DIAS 101; BP_DIAS 79; BP_DIAS 92; TEMP 97.9; O2SAT 98
[2023-05-01] MEDS ORDERED: METOPROLOL TARTRATE 50 MG TABLET PO ONE (15:00)
[2023-05-01] MEDS ORDERED: IV NS 0.9% 250 ML IV ONE (15:24)
[2023-05-01] MEDS ORDERED: IOHEXOL-350 100 ML VIAL IV ONE (15:24)
[2023-05-01 15:47] VITALS: BP 125/93; TEMP 97.9; O2SAT 99
[2023-05-01] MEDS ORDERED: NITROGLYCERIN 0.4 MG/TAB BOTTLE ONE (15:47)
[2023-05-01] MEDS ORDERED: METOPROLOL TARTRATE INJ 5 MG/5 ML AMPUL ONE (15:47)
[2023-05-01] MEDS ORDERED: METOPROLOL TARTRATE INJ 5 MG/5 ML AMPUL IVP PRN (16:00)
[2023-05-01] MEDS ORDERED: NITROGLYCERIN 0.4 MG/TAB BOTTLE SL ONE (16:00)
[2023-05-01] MEDS ORDERED: HYDR-3642 PO (17:33)
[2023-05-01] MEDS ORDERED: CYCL5TAB PO ×2 (17:33)
[2023-05-01] MEDS ORDERED: AMLO-212 PO (17:33)
[2023-05-01] MEDS ORDERED: OMEP20TA20 PO (17:33)
[2023-05-01] MEDS ORDERED: BUPR100T6 PO (17:33)
[2023-05-01] MEDS ORDERED: hydrOXYzine 10 MG TABLET PO PRN (18:00)
[2023-05-01 20:00] VITALS: BP 116/87; TEMP 98.4; O2SAT 98
[2023-05-01] MEDS ORDERED: ZOLPIDEM TARTRATE 5 MG TABLET PO PRN (21:30)
[2023-05-02] VITALS: BP 108/77; TEMP 98.6; O2SAT 97
[2023-05-02] MEDS: IV NS 0.9% 1,000 ML IV PRN (01:55)
[2023-05-02 04:00] VITALS: BP 124/98; TEMP 97.7; O2SAT 99
[2023-05-02] MEDS: HYDROCODONE/APAP 10/325MG TABLET PO PRN ×2 (06:31→15:11)
[2023-05-02] MEDS: PANTOPRAZOLE 40 MG/PACK PACK PO SCH (06:31)
[2023-05-02 07:00] VITALS: BP 115/82; TEMP 97.7; O2SAT 99
[2023-05-02 07:08] LABS: BASOPHILS % (AUTO) 0.8 % (0.0-2.0); EOSINOPHILS # (AUTO) 0.1 K/uL (0.0-0.7); EOSINOPHILS % (AUTO) 1.6 % (0.0-6.0); HEMATOCRIT 35 % (33-45); HEMOGLOBIN 11.9 g/dL (11.5-14.8); LYMPHOCYTES # (AUTO) 1.4 K/uL (0.8-4.8); LYMPHOCYTES % (AUTO) 28.5 % (20.0-44.0); MEAN CORPUSCULAR HEMOGLOBIN 37 PG (26.0-33.0); MEAN CORPUSCULAR HGB CONC 33 g/dl (31.0-36.0); MEAN CORPUSCULAR VOLUME 111 fL (82-100); MONOCYTES # (AUTO) 0.3 K/uL (0.1-1.30); MONOCYTES % (AUTO) 6.7 % (2.0-12.0); NEUTROPHILS % (AUTO) 62.4 % (43.0-81.0); PLATELET COUNT (AUTO) 159 K/uL (150-450); RED CELL DISTRIBUTION WIDTH 14.1 % (11.5-15.0); WHITE BLOOD COUNT (AUTO) 4.8 K/uL (4.3-11.0)
[2023-05-02 07:19] LABS: CALCIUM, SERUM 8.8 mg/dL (8.5-10.1); CREATININE 0.6 mg/dL (0.6-1.3); MAGNESIUM 1.5 mg/dL (1.8-2.4); PHOSPHORUS 4.2 mg/dL (2.5-4.9); POTASSIUM 3.2 mmol/L (3.5-5.1)
[2023-05-02] MEDS ORDERED: AMLODIPINE BESYLATE 5 MG TABLET PO SCH (09:00)
[2023-05-02] MEDS ORDERED: buPROPion SR 100 MG TABLET.ER PO SCH (09:00)
[2023-05-02] MEDS ORDERED: POTASSIUM CHLORIDE 20 MEQ TAB.PRT.SR PO ONE (10:00)
[2023-05-02] MEDS: Magnesium 1GM/D5W 100ML PREMIX 100 ML IV SCH ×2 (10:38→12:08)
[2023-05-02 11:30] VITALS: BP 128/90; TEMP 98.3; O2SAT 99
== END 2023-05-02 15:30 | disposition home or self-care (01) | DRG 201 ==
LOC: ER 21:08 → TELE 05-01 03:14
PROVIDERS: ADMIT Internal Medicine; ATTEND Internal Medicine
DX: I49.9 Cardiac arrhythmia, unspecified (principal); I21.A1 Myocardial infarction type 2; R55 Syncope and collapse; E87.6 Hypokalemia; I10 Essential (primary) hypertension; F41.9 Anxiety disorder, unspecified; N39.0 Urinary tract infection, site not specified; V89.2XXA Person injured in unspecified motor-vehicle accident, traffic, initial encounter; Y93.9 Activity, unspecified; Y92.410 Unspecified street and highway as the place of occurrence of the external cause
CPT/HCPCS: 36415; 70450-TC; 71045-TC; 72074-TC; 73010-TC; 75574; 80048-TC; 80053-TC; 80061-TC; 80076-TC; 81001; 82962-TC; 83735-TC; 84100-TC; 84484-TC; 84703-TC; 85025-TC; 93307-TC; A4223; G0378; G0480; J1200; J1885; J2405; J3475; J3490; J7030; J7040; J7050; J8597; Q9967

== ENCOUNTER 2024-09-17 16:21 | Emergency (ER) | payer OTHER ==
[~2024-09-17] VITALS: Ht 170.2 cm; Wt 74.8 kg
[~2024-09-17 16:21] MED LIST changes: +AMLO-212 PO; +BUPR100T6 PO; +CYCL5TAB PO; +HYDR-3642 PO; +OMEP20TA20 PO
[2024-09-17] MEDS ORDERED: HALOPERIDOL LACTATE INJ 5 MG/ML VIAL ONE (17:05)
[2024-09-17] MEDS ORDERED: diphenhydrAMINE HCL 50 MG/ML VIAL ONE (17:05)
[2024-09-17] MEDS ORDERED: FAMOTIDINE/PF INJ 20 MG/2 ML VIAL IV ONE (17:06)
[2024-09-17] MEDS ORDERED: ONDANSETRON HCL/PF 4 MG/2 ML VIAL ONE (17:06)
[2024-09-17] MEDS ORDERED: PANTOPRAZOLE 40 MG VIAL ONE (17:06)
[2024-09-17 17:19] LABS: CALCIUM, SERUM 10.4 mg/dL (8.5-10.1); CREATININE 0.9 mg/dL (0.6-1.3); POTASSIUM 3.6 mmol/L (3.5-5.1)
[2024-09-17 17:25] LABS: ALBUMIN 4.5 g/dL (3.4-5.0); BILIRUBIN,DIRECT 0.2 mg/dL (0.0-0.2); BILIRUBIN,TOTAL 0.8 mg/dL (0.2-1.0); TOTAL PROTEIN, SERUM 8.6 g/dL (6.4-8.2)
[2024-09-17] MEDS: PANTOPRAZOLE 40 MG VIAL IV ONE (17:31)
[2024-09-17] MEDS: diphenhydrAMINE HCL 50 MG/ML VIAL IV ONE (17:31)
[2024-09-17] MEDS: FAMOTIDINE/PF INJ 20 MG/2 ML VIAL IV ONE (17:31)
[2024-09-17] MEDS: IV NS 0.9% 1,000 ML BAG IV ONE (17:31)
[2024-09-17] MEDS: ONDANSETRON HCL/PF 4 MG/2 ML VIAL IVP ONE (17:31)
[2024-09-17] MEDS: HALOPERIDOL LACTATE INJ 5 MG/ML VIAL IV ONE (17:31)
[2024-09-17 17:48] LABS: BASOPHILS % (AUTO) 0.1 % (0.0-2.0); HEMATOCRIT 43 % (33-45); HEMOGLOBIN 14.5 g/dL (11.5-14.8); LYMPHOCYTES # (AUTO) 0.4 K/uL (0.8-4.8); MEAN CORPUSCULAR HEMOGLOBIN 36 PG (26.0-33.0); MEAN CORPUSCULAR HGB CONC 34 g/dl (31.0-36.0); MEAN CORPUSCULAR VOLUME 106 fL (82-100); MONOCYTES # (AUTO) 0.2 K/uL (0.1-1.30); MONOCYTES % (AUTO) 2.1 % (2.0-12.0); NEUTROPHILS # (AUTO) 9.9 K/uL (1.8-8.9); NEUTROPHILS % (AUTO) 93.8 % (43.0-81.0); PLATELET COUNT (AUTO) 213 K/uL (150-450); RED BLOOD CELL COUNT(AUTO) 4.07 MIL/uL (4.0-5.2); RED CELL DISTRIBUTION WIDTH 16.7 % (11.5-15.0); WHITE BLOOD COUNT (AUTO) 10.6 K/uL (4.3-11.0)
[2024-09-17] MEDS ORDERED: IBUP-1953 PO (18:52)
[2024-09-17] MEDS ORDERED: DICY10CA37 PO (18:52)
[2024-09-17] MEDS ORDERED: ONDA4TAB5 PO (18:52)
[2024-09-17] MEDS: KETOROLAC TROMETHAMINE 15 MG/ML VIAL IV ONE (18:55)
[2024-09-17 19:07] VITALS: BP 139/88; TEMP 98.4; O2SAT 97
[2024-09-17 20:06] LABS: ANISOCYTOSIS 1+; LYMPHOCYTES % (MANUAL) 5 % (16-48); MONOCYTES % (MANUAL) 3 % (0-11.0); NEUTROPHILS % (MANUAL) 92 (42-76); PLATELET ESTIMATE ADEQUATE; ROULEAUX 1+
== END 2024-09-17 19:08 | disposition home or self-care (01) ==
LOC: ER 17:34
DX: F12.10 Cannabis abuse, uncomplicated (principal); I10 Essential (primary) hypertension; I25.2 Old myocardial infarction; R11.2 Nausea with vomiting, unspecified; R07.9 Chest pain, unspecified; R10.13 Epigastric pain; Z79.899 Other long term (current) drug therapy; Z60.2 Problems related to living alone
CPT/HCPCS: 99285; 96374; 96361; 96375; 71045; 85025; 80048; 83690; 80076; 84703; 85007; 36415; J1200; J1630; J1308; J2405; J2470; J1885